=== PATIENT | male | born 1995 | race Caucasian/White ===

== ENCOUNTER → 2017-01-25 | Outpatient (CLI) | payer OTHER ==
[2017-01-25 19:40] LABS: Basophils # (A) 0.1 k/uL (0-0.2); Basophils % (A) 1 %; CH 31.8; CHCM 34.6; Eosinophils # (A) 1.4 k/uL (0-0.7); Eosinophils % (A) 19 %; HCT 46.5 % (39.0-53.0); HDW 2.45; HGB 16.3 gm/dL (13.0-17.5); Luc # (Auto) 0.13; Luc % (Auto) 2; Lymphocytes # (A) 2.2 k/uL (1.0-4.8); Lymphocytes % (A) 31 %; MCH 32.3 pg (25.0-35.0); MCV 92.3 fL (80.0-100.0); Mean Platelet Volume 8.4; Monocytes # (A) 0.4 k/uL (0-1.0); Monocytes % (A) 5 %; Neutrophils # (A) 2.9 k/uL (1.3-7.7); Neutrophils % (A) 42 %; RBC 5.04 m/uL (4.30-5.90); RDW 13.3 % (11.5-15.5); WBC (Perox) 6.82
[2017-01-25 19:54] LABS: ALT 30 U/L (21-72); AST 21 U/L (17-59); Alkaline Phosphatase 88 U/L (38-126); Anion Gap 12 mmol/L; Blood Urea Nitrogen 18 mg/dL (9-20); Calcium 9.8 mg/dL (8.4-10.2); Carbon Dioxide 25 mmol/L (22-30); Chloride 103 mmol/L (98-107); Cholesterol 156 mg/dL (<200); Glucose 88 mg/dL (74-99); HDL Cholesterol 46 mg/dL (40-60); Non-African American GFR(MDRD) >60 (>60 ml/min/1.73 sqM); Potassium 4.5 mmol/L (3.5-5.1); Sodium 140 mmol/L (137-145); Total Bilirubin 0.7 mg/dL (0.2-1.3); Total Protein 7.3 g/dL (6.3-8.2); Triglycerides 103 mg/dL (<150)
[2017-01-25 20:20] LABS: Hepatitis B Surface Ag Index 0.04
[2017-01-25 20:26] LABS: Hepatitis B Core IgM Index 0.03
[2017-01-25 20:37] LABS: Hepatitis C Virus IgG Ab Negative (Negative); Hepatitis C Virus IgG Index 0.07
[2017-01-26 00:48] LABS: Treponemal Ab Non-Reactive (Non-Reactive)
== END | disposition home or self-care (01) ==
LOC: MMGSC 13:41
PROVIDERS: ATTEND Family Medicine
DX: Z00.00 Encounter for general adult medical examination without abnormal findings (principal); Z20.2 Contact with and (suspected) exposure to infections with a predominantly sexual mode of transmission
CPT/HCPCS: 36415; 80053; 80061; 80074; 84439; 84443; 85025; 86780; 87390; 87491; 87591

== ENCOUNTER 2017-05-17 20:58 | Emergency (ER) | payer OTHER ==
[2017-05-17 21:08] VITALS: BP 131/66; PULSE 89; RESP 16; TEMP 98.9
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
== END 2017-05-17 22:26 | disposition home or self-care (01) ==
LOC: EC 20:58
DX: T23.152A Burn of first degree of left palm, initial encounter (principal); T23.162A Burn of first degree of back of left hand, initial encounter; T31.0 Burns involving less than 10% of body surface; X10.2XXA Contact with fats and cooking oils, initial encounter; Y93.G3 Activity, cooking and baking; Y92.019 Unspecified place in single-family (private) house as the place of occurrence of the external cause
CPT/HCPCS: 16020; 99283

== ENCOUNTER → 2017-09-14 | Outpatient (CLI) | payer OTHER ==
[2017-09-16 08:48] LABS: C. trachomatis,PCR Negative (Neg,Equiv); Chlamydia trachomatis Source Urine; N. gonorrhoeae,PCR Negative (Neg,Equiv); Neisseria Source Urine
== END | disposition home or self-care (01) ==
LOC: MMGSC 11:46
PROVIDERS: ATTEND Family Medicine
DX: Z09 Encounter for follow-up examination after completed treatment for conditions other than malignant neoplasm (principal); Z86.19 Personal history of other infectious and parasitic diseases
CPT/HCPCS: 87491; 87591

== ENCOUNTER → 2017-09-23 | Outpatient (CLI) | payer OTHER ==
--- NOTE | 2017-09-23 08:00 | US ---
EXAMINATION TYPE: US scrotum with doppler. Grayscale and color Doppler Duplex imaging performed of t he scrotum. DATE OF EXAM: 09/23/2017 COMPARISON: NONE CLINICAL HISTORY: N50.819 Testicular Pain. Intermittent palpable/painful testicular lump x couple mon ths EXAM MEASUREMENTS: TESTICLES: Right Testicle: 4.3 x 2.2 x 2.9 cm Left Testicle: 4.3 x 2.0 x 3.4 cm EPIDIDYMIS HEAD: Right Epididymis: 1.0 x 0.8 x 1.7 cm Left Epididymis: 1.0 x 1.0 x 2.2 cm Doppler performed to assess for testicular vascularity; good bilateral color flow and waveforms are s een. There is no evidence of testicular torsion. Left epididymis: 0.8 x 0.5 x 0.8cm cyst Presence of hydroceles: small right sided 2.3cm Presence of varicoceles: no IMPRESSION: 1. Small right-sided hydrocele. 2. Benign subcentimeter left epididymal cyst. 3. No intratesticular mass is identified.
== END ==
LOC: RADUSWWP 06:58
PROVIDERS: ATTEND Family Medicine
DX: N43.3 Hydrocele, unspecified (principal); N50.3 Cyst of epididymis
CPT/HCPCS: 76870; 93975